=== PATIENT | female | born 2000 | race Caucasian/White ===

== ENCOUNTER 2020-01-17 03:56 | Outpatient (CLI) | payer OTHER, SELFPAY ==
--- NOTE | 2020-01-17 08:30 | DI.US_ITS ---
EXAM: US SOFT TISSUE HEAD OR NECK CLINICAL HISTORY: visible mass on left side of neck, ? lymph node, R22.1 SWELLING TECHNIQUE: Ultrasound performed using standard protocol. COMPARISON: No exams were available for comparison FINDINGS: Soft tissue ultrasound was performed to evaluate questionable palpable area of abnormality of the lef t cervical region. Palpable abnormality appears to correspond with morphologically normal lymph node measuring about 13 x 3 millimeters in diameter. It additional small nodes are seen in this region a s well. No mass identified. IMPRESSION: Unremarkable appearance of left cervical lymph nodes. No additional mass seen. DATA REPOSITORY:
== END 2020-01-17 04:16 ==
PROVIDERS: PCP Pediatrics; Visit Provider Pediatrics
DX: R22.1 Localized swelling, mass and lump, neck (principal); R59.0 Localized enlarged lymph nodes
CPT/HCPCS: 76536